=== PATIENT | male | born 1985 | race Caucasian/White ===

== ENCOUNTER → 2024-03-20 | Outpatient (CLI) | payer MEDICAID, SELFPAY ==
--- NOTE | 2024-03-20 10:30 | XR_ITS ---
Examination: Abdomen sonogram, complete Date and time of exam: March 20, 2024 1021 hours INDICATIONS: Elevated liver function tests on laboratory examination performed one month ago. Technique: Multiple real-time grayscale transabdominal sonographic images of the abdomen have been obtained. Findings: Normal gallbladder Normal common bile duct 0.3 cm Pancreatic head 2.5 cm Aorta not enlarged Hepatomegaly 19.6 cm fatty liver no focal liver lesions Normal hepatopedal portal venous oh Patent IVC Right kidney 12.7 x 5.4 x 6.0 cm cortex 1.5 cm Left kidney 12.8 x 6.5 x 5.3 cm cortex 2.4 cm Mild renal parenchymal scar formation No hydronephrosis Splenomegaly 20.2 cm IMPRESSION: Normal gallbladder Moderate hepatomegaly fatty liver Prominent splenomegaly
== END | disposition home or self-care (01) ==
PROVIDERS: PCP Internal Medicine; Referring Provider Internal Medicine; Visit Provider Internal Medicine
DX: K76.0 Fatty (change of) liver, not elsewhere classified (principal); R16.1 Splenomegaly, not elsewhere classified
CPT/HCPCS: 76700

== ENCOUNTER 2024-09-30 14:13 | Emergency (ER) | payer SELFPAY ==
[2024-09-30 14:13] VITALS: BMI 35.9
[2024-09-30 15:20] VITALS: BP 145/85; PULSE 84; RESP 18; TEMP 37; O2SAT 97
--- NOTE | 2024-09-30 15:36 | EDNOTE_ITS ---
ED Back Injury Pain RME/HPI General Chief Complaint: Back Pain/Injury Stated Complaint: RIGHT FLANK/NYLA PAIN AFTER SNEEZING TODAY Time Seen by Provider: 09/30/24 14:37 Arrival date/time: 09/30/24 14:13 This is a 38-year-old male that comes in with complaints of right flank pain that started he thinks after sneezing. Patient is tender to palpation to his right flank area. Patient denies fall patient denies any other trauma. Patient has a history of gout, high blood pressure, Related Data Home Medications ?Medication ?Instructions ?Recorded ?Confirmed allopurinol 300 mg tablet 300 mg PO QDAY 08/02/17 05/0 04/22 amlodipine 10 mg tablet 10 mg PO QDAY 08/02/1708/03 Previous Rx's ?Medication ?Instructions ?Recorded ciprofloxacin HCl 500 mg tablet 500 mg PO Q12H #14 tab s 08/03/17 (Cipro) hydrocodone 5 mg-acetaminophen 325 1 tab PO Q6H PRN pa in #30 tabs 08/03/17 mg tablet (Corona) cyclobenzaprine 10 mg tablet 10 mg PO BID #20 tabs ibuprofen 800 mg tablet 800 mg PO Q6H PRN pain #20 t abs 09/30/24 Allergies Allergy/AdvReac Type Severity Reaction Status Date / Time No Known Allergies Allergy Verified 09/30/24 14:15 Review of Systems Review of Systems Systems Reviewed: All systems reviewed, normal except as documented Past Medical History Past Medical History Comments PMH COMMENT: Denies ED Exam Narrative Physical exam: VITAL SIGNS: Reviewed. GENERAL APPEARANCE: Alert and interactive, follows commands, no acute distress HEAD AND FACE: Non-traumatic. ENT: PERRL, conjuctiva pink and clear, eyelid no trauma, Mucous membrane moist. NECK: Supple, nontender, no nuchal rigidity. CHEST: No tenderness, no crepitus, no paradoxical movement, no retractions. LUNGS: breathing even and unlabored HEART: Regular rate, cap refill less than 2 seconds ABDOMEN: Soft, nondistended, no guarding, nontender NEUROLOGICAL: Gross motor function intact sensory function intact, Appropriate for age. MUSCULOSKELETAL: low back nontender, full range of motion. No pain over spinal processes of neck or lower back EXTREMITIES: No redness no swelling no skin breakdown on bilateral foot and leg. Distal neurovascular status intact bilateral foot SKIN: Color pink, dry, no rash, no lacerations, no abrasions, no contusions. Course Quality Measures none Orders Category Date Time Status Urinalysis, C/S if Indicated Stat Lab 09/30/24 16:00 Completed CYCLObenzaPRINE [Flexeril] Med 09/30/24 15:35 Discontinued 10 mg PO X1 ONE Ketorolac Inj [Toradol Inj] Med 09/30/24 15:35 Discontinued 60 mg IM X1 ONE Metoclopramide Inj [Reglan Inj] Med 09/30/24 15:35 Discontinued 10 mg IM X1 ONE Vital Signs Vital signs: Vital Signs Temperature 98.6 F 09/30/24 15:20 Pulse Rate 84 09/30/24 15:20 Respiratory Rate 18 09/30/24 15:20 Blood Pressure 145/85 H 09/30/24 15:20 Pulse Oximetry (%) 97 09/30/24 15:20 Oxygen Delivery Method Room Air 09/30/24 15:20 Back Pain / Injury MDM Narrative MDM Narrative:: UA looks unremarkable. Patient told to follow-up with primary provider in 1 to 2 days. Come back to the emergency room if symptoms change or worsen. Patient feels better after medication. patient feels comfortable with plan of care. Patient data External records reviewed:: [facility] previous records Clinical information provided by:: patient Social determinants that could affect healthcare access:: none Patient has the following chronic illnesses:: None How is presenting disease/condition affected by chronic disease/condition?: no chronic disease Evaluation data The following diagnostics were reviewed and interpreted by me:: lab results Lab and/or radiology exams considered but not ordered:: None Interpretation Summary: See note Medications / Prescriptions Medications or Prescriptions considered but not ordered:: None Medication administrations:: Medication Administration History Discontinued Medications Cyclobenzaprine HCl (Cyclobenzaprine 5 Mg Tablet) 10 mg PO X1 ONE Stop: 09/30/24 15:36 Last Admin: 09/30/24 17:26 Dose: 10 mg Documented By: Ketorolac Tromethamine (Ketorolac Inj 60 Mg/2 Ml Vial) 60 mg IM X1 ONE Stop: 09/30/24 15:36 Last Admin: 09/30/24 17:26 Dose: 60 mg Documented By: Metoclopramide HCl (Metoclopramide Inj 5 Mg/Ml Vial 2 Ml) 10 mg IM X1 ONE; Protocol Stop: 09/30/24 15:36 Last Admin: 09/30/24 17:26 Dose: 10 mg Documented By: See MAR Consultations Consultation(s) initiated? (list below): No Diagnosis Differential diagnosis back pain/injury: lumbar radiculopathy, strain of lumbar region, renal colic, pyelonephritis and thoracic back pain Most likely diagnosis given after review of the tests above:: Back pain muscle strain Admission Indicated Admission indicated?: not indicated Admission Request Was there a request for admission?: No Disposition Plan Disposition Plan: Discharge Discharge Attestation Discharge Attestation: The patient and all family members were given an opportunity to ask questions and understood the discharge instructions. Discharge instructions specifically effects, indications for sooner follow up or return to the emergency department, and the expected course of current diagnosis. Patient condition: Stable Discharge Plan Plan Patient Disposition: HOME (Self Care) Patient condition on transfer: Stable Prescriptions/Referrals Prescriptions/Med Rec: New cyclobenzaprine 10 mg tablet 10 mg PO BID Qty: 20 0RF ibuprofen 800 mg tablet 800 mg PO Q6H PRN (Reason: pain) Qty: 20 0RF No Action amlodipine 10 mg Tablet 10 mg PO QDAY allopurinol 300 mg Tablet 300 mg PO QDAY hydrocodone-acetaminophen [Corona] 5-325 mg tablet 1 tab PO Q6H MDD 4 PRN (Reason: pain) Qty: 30 0RF ciprofloxacin HCl [Cipro] 500 mg tablet 500 mg PO Q12H Qty: 14 0RF Rx Instructions: administer dose 2 hrs before/6 hrs after dairy products/calcium/zinc/iron- containing products Referrals: Garland Ramos MD [Primary Care Provider] - In 1 week Problem List Clinical Impression: Back pain Patient/Caregiver Discharge Instructions Discharge Activity: activity as tolerated Education Materials: ED Back Pain (Acute or Chronic) Additional Instructions: Follow up with primary provider in 1-2 days. Come back to ED if symptoms change or worsen Print Language: Slovak Stand Alone Forms: Bren Award Info., Patient Portal Info Letter PA/MACHINIST JOB SETTER Supervising Physician PA/MACHINIST JOB SETTER Supervising Physician: DAVID
[2024-09-30 16:14] LABS: Collection Type, Urine Voided
[2024-09-30 16:36] LABS: Bilirubin,Urine Negative (Negative); Blood,Urine Negative (Negative); Color,Urine Yellow (Lt Yel-Yel); Culture Indicated,Urine Not Indicated; Glucose, Urine Negative (Negative); Ketones,Urine Negative (Negative); Leukocyte Esterase,Urine Positive (Negative); Nitrite,Urine Negative (Negative); PH,Urine 5.5 (5.0-7.0); Protein,Urine Trace (Neg - Trace); RBC,Urine 1 /hpf (0-3); Specific Gravity,Urine 1.031 (1.001-1.035); Squamous Epithelial Cell,Urine < 1 /hpf (0-5); Urobilinogen,Urine Negative mg/dL (0.0-1.0); WBC,Urine 3 /hpf (0-5)
[2024-09-30 16:37] LABS: Clarity,Urine Clear (Clear/Hazy)
[2024-09-30] MEDS: METOCLOPRAMIDE INJ 5 MG/ML VIAL 2 ML 10 MG IM (17:26)
[2024-09-30] MEDS: CYCLObenzaPRINE 5 MG TABLET 10 MG PO (17:26)
[2024-09-30] MEDS: KETOROLAC INJ 60 MG/2 ML VIAL IM (17:26)
== END 2024-09-30 17:40 | disposition home or self-care (01) ==
PROVIDERS: Nurse Practitioner Family; PCP Internal Medicine
DX: M54.9 Dorsalgia, unspecified (principal); M10.9 Gout, unspecified
CPT/HCPCS: 81001; 96372; 99283; J1885; J2765; A9270